=== PATIENT | female | born 1980 | race American Indian/Alaskan Native ===

== ENCOUNTER 2024-01-23 01:20 | Emergency (ER) | payer MEDICAID ==
[2024-01-23 02:20] LABS: APPEARANCE,URINE CLOUDY (CLEAR); BILIRUBIN,URINE NEGATIVE (NEGATIVE); COLOR,URINE YELLOW (YELLOW); GLUCOSE,URINE NEGATIVE (NEGATIVE); KETONES,URINE NEGATIVE (NEGATIVE); LEUKOCYTE ESTERASE,URINE MODERATE (NEGATIVE); NITRITE,URINE NEGATIVE (NEGATIVE); OCCULT BLOOD,URINE LARGE (NEGATIVE); PH,URINE 6.5 (5.0-9.0); PROTEIN,URINE 100 (NEGATIVE)
[2024-01-23 02:29] LABS: BARBITURATES,URINE NEGATIVE (NEGATIVE); BENZODIAZEPINE,URINE NEGATIVE (NEGATIVE); MDMA (ECSTASY), URINE NEGATIVE (NEGATIVE); METHADONE,URINE NEGATIVE (NEGATIVE); METHAMPHETAMINES,URINE POSITIVE (NEGATIVE); OPIATES,URINE NEGATIVE (NEGATIVE); PHENCYCLIDINE,URINE NEGATIVE (NEGATIVE); TCA,URINE NEGATIVE (NEGATIVE)
[2024-01-23 02:30] LABS: AMPHETAMINES,URINE POSITIVE (NEGATIVE); OXYCODONE,URINE NEGATIVE (NEGATIVE)
[2024-01-23 02:31] LABS: BASOPHILS PERCENT AUTO 0.2 % (0.0-1.0); EOSINOPHILS PERCENT AUTO 1.5 % (1.0-3.0); HEMOGLOBIN 14.7 g/dL (12.0-16.0); LYMPHOCYTES PERCENT AUTO 18.5 % (20.5-50.1); MEAN CORPUSCULAR HGB CONC 34.2 g/dL (33.0-35.0); MEAN CORPUSCULAR VOLUME 99.5 fL (80-100); MONOCYTES PERCENT AUTO 7.4 % (2-8); NEUTROPHILS PERCENT AUTO 72.4 % (42.2-75.2); PLATELET COUNT,PLT 312 10^3/uL (150-450); RED BLOOD CELL COUNT 4.32 10^6/uL (4.2-5.4); WHITE BLOOD CELL COUNT,WBC 8.1 10^3/uL (5.0-10.0)
[2024-01-23 02:33] LABS: AMORPHOUS SEDIMENT,URINE MODERATE /HPF (NOT SEEN); BACTERIA,URINE MANY /HPF (0-FEW/HPF); EPITHELIAL CELLS,URINE MANY /HPF (NOT SEEN); MUCUS,URINE MODERATE /LPF (NOT SEEN); RBC,URINE SEMI-PACKED /HPF (0-5); WBC,URINE PACKED /HPF (0-5/HPF)
[2024-01-23] MEDS: Sodium Chloride 0.9% 10 ML Syringe FLUSH PRN (02:35)
[2024-01-23 02:49] LABS: A/G RATIO 0.9; ALBUMIN 3.9 g/dL (3.4-5.0); ANION GAP 13.5 mEq/L (7-13); BUN/CREATININE RATIO 8.6 (No establ ref range); CALCIUM 8.9 mg/dL (8.5-10.1); CREATININE 0.58 mg/dL (0.55-1.02); EST CRCL DRUG DOSING (CG) 124.13 mL/min; POTASSIUM,K 3.5 mmol/L (3.5-5.1); PROTEIN TOTAL,TP 8.1 g/dL (6.4-8.2)
== END 2024-01-23 02:47 | disposition left against medical advice (07) ==
LOC: DL.ED 01:20 → MERGE 01:20 → DL.ED 02:47
DX: N39.0 Urinary tract infection, site not specified (principal); F10.920 Alcohol use, unspecified with intoxication, uncomplicated; F15.90 Other stimulant use, unspecified, uncomplicated; F17.210 Nicotine dependence, cigarettes, uncomplicated
CPT/HCPCS: 36415; 80053; 80305-QW; 80307; 81001; 81025; 85025; 87086; 87088; 87186; 99283; 99284; J3490

== ENCOUNTER 2025-03-21 20:16 | Emergency (ER) | payer MEDICAID ==
[2025-03-21] MEDS: Take Home: predniSONE 20 MG, 4 Tab Pack PO ONE (21:24)
[2025-03-21] MEDS: Take Home: Doxycycline 100 MG Cap, 4 Cap Pack PO ONE (21:24)
[2025-03-21] MEDS: Albuterol 6.7 GM Inhaler INH ONE (21:27)
== END 2025-03-21 21:14 | disposition home or self-care (01) ==
LOC: DL.ED 20:16
DX: J40 Bronchitis, not specified as acute or chronic (principal); Z72.0 Tobacco use; Z90.49 Acquired absence of other specified parts of digestive tract
CPT/HCPCS: 87081; 87428-QW; 87430; 99283; 99285

== ENCOUNTER 2025-05-20 19:10 | Emergency (ER) | payer MEDICAID ==
[2025-05-20] MEDS: Dexamethasone 6 MG TABLET PO ONE (19:38)
== END 2025-05-20 19:43 | disposition home or self-care (01) ==
LOC: DL.ED 19:10
DX: M54.41 Lumbago with sciatica, right side (principal); F17.200 Nicotine dependence, unspecified, uncomplicated; Z90.49 Acquired absence of other specified parts of digestive tract
CPT/HCPCS: 99283; J8540

== ENCOUNTER 2025-05-22 00:09 | Emergency (ER) | payer MEDICAID ==
[2025-05-22] MEDS ORDERED: Ketorolac 30 MG/ML SDV IM ONE (01:52)
== END 2025-05-22 02:00 | disposition left against medical advice (07) ==
LOC: DL.ED 00:09
DX: S93.492A Sprain of other ligament of left ankle, initial encounter (principal); S80.12XA Contusion of left lower leg, initial encounter; F10.920 Alcohol use, unspecified with intoxication, uncomplicated; F17.210 Nicotine dependence, cigarettes, uncomplicated; Z90.49 Acquired absence of other specified parts of digestive tract; W10.9XXA Fall (on) (from) unspecified stairs and steps, initial encounter; Y90.9 Presence of alcohol in blood, level not specified
CPT/HCPCS: 73590-LT; 73600-LT; 99283